=== PATIENT | male | born 1990 ===

== ENCOUNTER 2023-07-03 09:00 | Outpatient (CLI) | payer BC, SELFPAY | END 2023-07-03 09:01 | disposition home or self-care (01) | PROVIDERS: PCP Family Medicine; Referring Provider Family Medicine; Visit Provider Physician Assistant | DX: Z31.9 Encounter for procreative management, unspecified (principal) | CPT/HCPCS: 89322 ==

== ENCOUNTER 2023-08-23 08:39 | Outpatient (CLI) | payer BC, SELFPAY | END 2023-08-23 08:40 | disposition home or self-care (01) | PROVIDERS: PCP Family Medicine; Visit Provider Family Medicine | DX: R63.4 Abnormal weight loss (principal); Z68.26 Body mass index [BMI] 26.0-26.9, adult; Z13.220 Encounter for screening for lipoid disorders; Z13.228 Encounter for screening for other metabolic disorders; Z13.29 Encounter for screening for other suspected endocrine disorder | CPT/HCPCS: 80053; 80061; 84443 ==

== ENCOUNTER 2024-07-21 14:25 | Outpatient (CLI) | payer BC, SELFPAY | END 2024-07-21 14:26 | disposition home or self-care (01) | LOC: NFLDREF 07-24 21:30 | PROVIDERS: PCP Family Medicine; Referring Provider Family Medicine; Visit Provider Family Medicine | DX: R39.15 Urgency of urination (principal) | CPT/HCPCS: 87086 ==